=== PATIENT | male | born 1985 | race Caucasian/White ===

== ENCOUNTER 2016-12-26 03:41 | Emergency (ER) | payer OTHER ==
[~2016-12-26] VITALS: Ht 165.1 cm; Wt 56.7 kg
[~2016-12-26 03:41] MED LIST: ATIVAN PO; OMEP40CA37 PO
[2016-12-26 04:43] VITALS: BP 138/89
--- NOTE | 2016-12-26 04:43 | NUR ---
Patient discharged to home in stable conditon. Written and verbal after care instructions given. Patient verbalizes understanding of instructions. WALKED OUT OF ER WITH STEADY GAIT
[2016-12-26] MEDS ORDERED: TRAMADOL HCL 50 MG TABLET PO ONE (04:45)
[2016-12-26] MEDS ORDERED: FAMOTIDINE 20 MG TABLET PO ONE (04:45)
[2016-12-26] MEDS ORDERED: TRAMADOL HCL 50 MG TABLET ONE (04:47)
[2016-12-26] MEDS ORDERED: FAMOTIDINE 20 MG TABLET ONE (04:47)
== END 2016-12-26 04:44 | disposition home or self-care (01) ==
LOC: ER 03:45
DX: K29.70 Gastritis, unspecified, without bleeding (principal); M54.6 Pain in thoracic spine; F41.9 Anxiety disorder, unspecified; F17.200 Nicotine dependence, unspecified, uncomplicated; F12.10 Cannabis abuse, uncomplicated
CPT/HCPCS: 99283; A4663

== ENCOUNTER 2017-01-12 19:24 | Emergency (ER) | payer OTHER ==
[~2017-01-12] VITALS: Ht 165.1 cm; Wt 59.0 kg
[2017-01-12] MEDS ORDERED: ACETAMINOPHEN ES 500 MG TABLET PO ONE (19:45)
[2017-01-12] MEDS ORDERED: ONDANSETRON ODT 4 MG TAB.RAPDIS SL ONE (19:45)
--- NOTE | 2017-01-12 19:57 | NUR ---
MSE COMPLETED, MEDS ADMINISTERED. ACI/RX X3 GIVEN. PT AMBULATED W/O DIFF/TOOK ALL BELONGINGS.
[2017-01-12] MEDS ORDERED: ACETAMINOPHEN ES 500 MG TABLET ONE (19:58)
[2017-01-12] MEDS ORDERED: ONDANSETRON ODT 4 MG TAB.RAPDIS ONE (19:58)
[2017-01-12 20:00] VITALS: BP 114/72
== END 2017-01-12 20:00 | disposition home or self-care (01) ==
LOC: ER 19:25
DX: J06.9 Acute upper respiratory infection, unspecified (principal); R51 Headache; F41.9 Anxiety disorder, unspecified; F17.200 Nicotine dependence, unspecified, uncomplicated; F12.10 Cannabis abuse, uncomplicated; Z86.19 Personal history of other infectious and parasitic diseases
CPT/HCPCS: A4663; Q0162

== ENCOUNTER 2017-01-16 09:19 | Emergency (ER) | payer OTHER ==
[~2017-01-16] VITALS: Ht 165.1 cm; Wt 59.0 kg
--- NOTE | 2017-01-16 09:34 | NUR ---
ER MD at the bedside for eval and exam.
[2017-01-16 09:42] VITALS: BP 129/77
--- NOTE | 2017-01-16 09:46 | NUR ---
Patient discharged to home in stable conditon. Written and verbal after care instructions given. Patient verbalizes understanding of instructions.
== END 2017-01-16 09:46 | disposition home or self-care (01) ==
LOC: ER 09:19
DX: B00.9 Herpesviral infection, unspecified (principal); J40 Bronchitis, not specified as acute or chronic; F41.9 Anxiety disorder, unspecified; F17.200 Nicotine dependence, unspecified, uncomplicated; F12.10 Cannabis abuse, uncomplicated
CPT/HCPCS: 99283; A4663

== ENCOUNTER 2017-01-23 15:17 | Emergency (ER) | payer OTHER ==
[~2017-01-23] VITALS: Ht 167.6 cm; Wt 63.5 kg
[~2017-01-23 15:17] MED LIST changes: -ATIVAN PO
--- NOTE | 2017-01-23 16:30 | NUR ---
CALLED POISON CONTROL. WAS TOLD THAT DUE TO THE FACT THAT THERE IS NO CLINICAL EVIDENCE OF INJURY TO THE MOUTH AND TONGUE, PT NEEDS TO BE PO CHALLENGED, TO SEE IF THERE IS ANY DIFFICULTY SWALLOWING. NOTIFIED.
--- NOTE | 2017-01-23 16:36 | NUR ---
PT ABLE TO DRNIK A CUP OF WATER WITH NO DIFFICUTY SWALLOWING.
--- NOTE | 2017-01-23 16:55 | NUR ---
Patient discharged to home in stable conditon. Written and verbal after care instructions given. Patient verbalizes understanding of instructions.PT WALKS IN STEADY GAIT, NO DIFFICULTY BREATHING OR SWALLOWING. PT WITH .
[2017-01-23 16:56] VITALS: BP 109/71
== END 2017-01-23 16:57 | disposition home or self-care (01) ==
LOC: ER 15:17
DX: T54.91XA Toxic effect of unspecified corrosive substance, accidental (unintentional), initial encounter (principal); Y92.89 Other specified places as the place of occurrence of the external cause
CPT/HCPCS: A4663

== ENCOUNTER 2017-02-14 05:56 | Emergency (ER) | payer OTHER ==
[~2017-02-14] VITALS: Ht 165.1 cm; Wt 61.2 kg
--- NOTE | 2017-02-14 07:03 | NUR ---
Patient discharged to home in stable conditon. Written and verbal after care instructions given. Patient verbalizes understanding of instructions. Ambulated from ER with stable gait. All belongings with patient.
[2017-02-14 07:04] VITALS: BP 127/69
== END 2017-02-14 07:05 | disposition home or self-care (01) ==
LOC: ER 05:56
DX: J20.9 Acute bronchitis, unspecified (principal); F41.9 Anxiety disorder, unspecified; F17.200 Nicotine dependence, unspecified, uncomplicated; F12.10 Cannabis abuse, uncomplicated; Z86.19 Personal history of other infectious and parasitic diseases
CPT/HCPCS: A4663

== ENCOUNTER 2017-07-07 15:41 | Emergency (ER) | payer OTHER ==
[~2017-07-07] VITALS: Ht 172.7 cm; Wt 63.5 kg
[2017-07-07] MEDS ORDERED: PANTOPRAZOLE SODIUM 40 MG TABLET.DR PO ONE ×2 (16:15→16:32)
[2017-07-07 16:58] LABS: POTASSIUM 3.8 mmol/L (3.5-5.1)
[2017-07-07 17:03] LABS: BASOPHILS # (AUTO) 0.1 K/uL (0.0-8.0); BASOPHILS % (AUTO) 1.4 % (0.0-2.0); EOSINOPHILS # (AUTO) 0.3 K/uL (0.0-0.7); EOSINOPHILS % (AUTO) 3.6 % (0.0-7.0); HEMATOCRIT 51.3 % (40-50); HEMOGLOBIN 16.8 G/DL (14.0-18.0); LYMPHOCYTES # (AUTO) 2.7 K/UL (0.8-4.8); LYMPHOCYTES % (AUTO) 27.7 % (20.5-51.5); MEAN CORPUSCULAR HEMOGLOBIN 31.8 UUG (27.0-31.0); MEAN CORPUSCULAR HGB CONC 33 g/dL (32.0-37.0); MEAN CORPUSCULAR VOLUME 97.1 FL (82.0-92.0); MONOCYTES % (AUTO) 9.8 % (0.0-11.0); NEUTROPHILS # (AUTO) 5.6 K/UL (1.8-8.9); NEUTROPHILS % (AUTO) 57.5 % (38.5-71.5); PLATELET COUNT (AUTO) 231 K/UL (150-450); RED BLOOD CELL COUNT(AUTO) 5.29 MIL/UL (4.7-6.1); WHITE BLOOD COUNT (AUTO) 9.7 K/UL (4.0-11.2)
[2017-07-07 17:11] LABS: BILIRUBIN,DIRECT 0.2 mg/dL (0.0-0.2); BILIRUBIN,TOTAL 0.6 mg/dL (0.2-1.0); TOTAL PROTEIN, SERUM 7.1 g/dL (6.4-8.2)
--- NOTE | 2017-07-07 17:59 | NUR ---
Pt resting in gurney with eyes closed and no s/s of distress noted. Pending repeat trop and EKG at 1999.
--- NOTE | 2017-07-07 19:21 | NUR ---
ASSUMED CARE OF PATIENT. NO ACUTE DISTRESS NOTED. AWAITING 1999 RECHECK OF TROPONIN. WILL CONTINUE TO MONITOR PATIENT.
--- NOTE | 2017-07-07 20:28 | NUR ---
Patient discharged to home in stable conditon. Written and verbal after care instructions given. Patient verbalizes understanding of instructions. Ambulated from Er with stable gait. All belongings with patient.
[2017-07-07 20:30] VITALS: BP 127/80
== END 2017-07-07 20:30 | disposition home or self-care (01) ==
LOC: ER 15:42
DX: K21.9 Gastro-esophageal reflux disease without esophagitis (principal); F17.200 Nicotine dependence, unspecified, uncomplicated
CPT/HCPCS: 36415; 70030-TC; 71010; 85025; 85730; 93005; A4663

== ENCOUNTER 2017-08-02 05:27 | Emergency (ER) | payer OTHER ==
[~2017-08-02] VITALS: Ht 165.1 cm; Wt 56.7 kg
[2017-08-02] MEDS ORDERED: MAG HYDROX/AL HYDROX/SIMETH 30 ML LIQUID UDC PO ONE (06:00)
[2017-08-02] MEDS ORDERED: DICYCLOMINE HCL 10 MG/5 ML UDC LIQ PO ONE (06:00)
[2017-08-02 06:04] VITALS: BP 130/78
[2017-08-02] MEDS ORDERED: MAG HYDROX/AL HYDROX/SIMETH 30 ML LIQUID UDC ONE (06:14)
[2017-08-02] MEDS ORDERED: DICYCLOMINE HCL 10 MG/5 ML UDC LIQ ONE (06:14)
== END 2017-08-02 06:05 | disposition home or self-care (01) ==
LOC: ER 05:32
DX: K29.70 Gastritis, unspecified, without bleeding (principal); K21.9 Gastro-esophageal reflux disease without esophagitis; F41.9 Anxiety disorder, unspecified; F17.200 Nicotine dependence, unspecified, uncomplicated
CPT/HCPCS: A4663